=== PATIENT | female | born 1950 | race Caucasian/White ===

== ENCOUNTER 2017-05-27 20:21 | Emergency (ER) | payer OTHER, MEDICARE ==
[~2017-05-27] VITALS: Ht 165.1 cm; Wt 70.3 kg
[~2017-05-27 20:21] MED LIST: DETROL LA; NORCO 5-325 TA1 EACH PO; VENLAFAXINE
[2017-05-27 23:10] VITALS: BP 171/87
== END 2017-05-27 23:10 | disposition home or self-care (01) ==
LOC: M.ERS 20:21
DX: S01.01XA Laceration without foreign body of scalp, initial encounter (principal); F10.99 Alcohol use, unspecified with unspecified alcohol-induced disorder; F32.9 Major depressive disorder, single episode, unspecified; W18.39XA Other fall on same level, initial encounter; Y93.89 Activity, other specified; Y92.89 Other specified places as the place of occurrence of the external cause; Y99.8 Other external cause status

== ENCOUNTER 2018-01-26 08:36 | Observation (INO) | payer OTHER, MEDICARE ==
[~2018-01-26] VITALS: Ht 162.6 cm; Wt 73.6 kg
[2018-01-26 08:39] VITALS: BP 180/84
[2018-01-26] MEDS ORDERED: LIPITOR10 MG PO (08:45)
[2018-01-26] MEDS ORDERED: FOLIC ACID1 MG PO (08:45)
[2018-01-26] MEDS ORDERED: VITAMIN D5000 UNI1 PO (08:46)
[2018-01-26] MEDS ORDERED: ASPIR 8181 M1 PO (08:46)
[2018-01-26 09:08] LABS: ABSOLUTE BASOPHILS 0.1 thou/uL (0.0-0.2); ABSOLUTE EOSINOPHILS 0.2 thou/uL (0.0-0.7); ABSOLUTE LYMPHOCYTES 1.9 thou/uL (0.8-5.3); ABSOLUTE MONOCYTES 0.5 thou/uL (0.0-1.2); ABSOLUTE NEUTROPHILS 3.2 thou/uL (1.6-8.1); BASOPHILS 1.5 %; EOSINOPHILS 2.6 %; HEMATOCRIT 40.1 % (37.0-47.0); HEMOGLOBIN 13.4 gm/dL (12.0-15.0); LYMPHOCYTES 32.4 %; MCH 31.2 pg (26.0-34.0); MCHC 33.5 g/dL (28.0-37.0); MCV 93.2 fL (80.0-100.0); MONOCYTES 9.1 %; MPV 7.4 fl. (7.2-11.1); NUCLEATED RBCS 0 /100WBC; PLATELET COUNT* 304 thou/uL (150-400); POLYS 54.4 %; RDW-CV 13.9 % (10.5-14.5); WBC 5.8 thou/uL (4.0-11.0)
[2018-01-26 09:19] LABS: ANION GAP 7 mmol/L (7-16); BUN 9 mg/dL (7-18); CALCIUM 8.5 mg/dL (8.5-10.1); CHLORIDE 106 mmol/L (98-107); CO2 29 mmol/L (21-32); CREATININE 0.8 mg/dL (0.6-1.3); GLUCOSE 96 mg/dL (70-99); POTASSIUM 4.2 mmol/L (3.5-5.1); SODIUM 142 mmol/L (136-145)
[2018-01-26 09:30] LABS: ALBUMIN 3.9 g/dL (3.4-5.0); ALKALINE PHOSPHATASE 54 U/L (46-116); LIPASE 137 U/L (73-393); MAGNESIUM 2.2 mg/dL (1.8-2.4); NT-PRO BRAIN NAT PEPTIDE 65 pg/mL (<300); SGOT 12 U/L (15-37); SGPT 18 U/L (30-65); TOTAL BILIRUBIN 0.3 mg/dL (<0.1-1.0); TOTAL PROTEIN 7.1 g/dL (6.4-8.2); TROPONIN-I LEVEL <0.06 ng/mL (<0.06)
[2018-01-26 13:45] VITALS: BP 130/85
[2018-01-26 14:06] VITALS: BP 160/96
--- NOTE | 2018-01-26 14:37 | NUR ---
ASSUMED PT CARE AT 0700 PT IS ALERT AND ORIENTED X 4 PT DENIES PAIN OR SOA ON RA, PT IS UP AD MIRZA PT IS NOT A FALL RISK, PT SEEN BY CARDIOLOGY WHO ORDERED STRESS TEST FOR TOMORROW PT IS NPO AT MIDNIGHT CAN HAVE DIET NOW, PT IS SR ON THE MONITOR, WILL CONTINUE TO MONITOR
[2018-01-26 16:05] VITALS: BP 141/65
--- NOTE | 2018-01-26 16:45 | EKG ---
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 01/26/18 1645 1 1 Bryant Diaz MD, FACC /EPI
--- NOTE | 2018-01-26 16:48 | EKG ---
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
--- NOTE | 2018-01-26 17:14 | 2DMMODE ---
[place] [address] 2 D/M-MODE ECHOCARDIOGRAM Name: JUAN COX Room: [address] IN [facility]#: [id number] Admission: 01/26/18 Attend Phys: Azeem Alejandra, Discharge: Date of : 54 Date of Service: 01/26/18 1714 Report #: [id number] THIS REPORT FOR: //name// APPROVED REPORT Study performed: 01/26/2018 15:50:49 EXAM: Comprehensive 2D, Doppler, and color-flow Echocardiogram Patient Location: In-Patient Room #: [facility] Status: routine BSA: 1.77 HR: 68 bpm BP: 160/96 mmHg Rhythm: NSR Other Information Study Quality: Good Indications Chest Pain 2D Dimensions IVSd: 10.61 (7-11mm) LVOT Diam: 19.13 (18-24mm) LVDd: 40.70 mm PWd: 10.27 (7-11mm) Ascending Ao: 31.78 (22-36mm) LVDs: 24.68 (25-40mm) Aortic Root: 28.02 mm Volumes Left Atrial Volume (Systole) LA ESV Index: 28.30 mL/m2 Aortic Valve AoV Peak Misbah.: 1.55 m/s AO Peak Gr.: 9.64 mmHg LVOT Max P.14 mmHg AO Mean Gr.: 5.34 mmHg LVOT Mean P.11 mmHg LVOT Max V: 1.34 m/s AO V2 VTI: 31.33 cm LVOT Mean V: 0.80 m/s [place] (VTI): 2.44 cm2 LVOT V1 VTI: 26.55 cm Mitral Valve E/A Ratio: 1.02 MV Decel. Time: 198.91 ms MV E Max Misbah.: 0.88 m/[place] [address] 2 D/M-MODE ECHOCARDIOGRAM Name: JUAN COX Room: [address] IN .R.#: [id number] Admission: 01/26/18 Attend Phys: Azeem Alejandra, Discharge: Date of : 54 Date of Service: 01/26/18 1714 Report #: [id number] MV PHT: 57.68 ms MVA (PHT): 3.81 cm2 TDI E/Lateral E': 8.00 E/Medial E': 8.00 Medial E' Misbah.: 0.11 m/s Lateral E' Misbah.: 0.11 m/s Pulmonary Valve PV Peak Misbah.: 0.99 m/s PV Peak Gr.: 3.92 mmHg Tricuspid Valve RAP Estimate: 5.00 mmHg TR Peak Gr.: 17.47 mmHg RVSP: 22.47 mmHg PA Pressure: 22.47 mmHg Left Ventricle The left ventricle is normal size. There is normal LV segmental wall motion. There is normal left ventricular wall thickness. Left ventricular systolic function is normal. The left ventricular ejection fraction is within the normal range. LVEF is 60-65%. Grade I - abnormal relaxation pattern. Right Ventricle The right ventricle is normal size. The right ventricular systolic function is normal. Atria The left atrium size is normal. The right atrium size is normal. Aortic Valve The aortic valve is normal in structure. No aortic regurgitation is present. There is no aortic valvular stenosis. Mitral Valve The mitral valve is normal in structure. Mild mitral regurgitation. No evidence of mitral valve stenosis. Tricuspid Valve The tricuspid valve is normal in structure. Trace tricuspid regurgitation. Mild pulmonary hypertension. Pulmonic Valve The pulmonary valve is normal in structure. There is no pulmon[place] [address] 2 D/M-MODE ECHOCARDIOGRAM Name: JUAN COX Room: [address] IN [facility]#: [id number] Admission: 01/26/18 Attend Phys: Azeem Alejandra, Discharge: Date of : 54 Date of Service: 01/26/18 1714 Report #: [id number] Great Vessels The aortic root is normal in size. IVC is normal in size and collapses >50% with inspiration. Pericardium There is no pericardial effusion. <Conclusion> LVEF is 60-65%. There is normal LV segmental wall motion. Grade I - abnormal relaxation pattern. No aortic regurgitation is present. There is no aortic valvular stenosis. Mild mitral regurgitation. Trace tricuspid regurgitation. Mild pulmonary hypertension. <ELECTRONICALLY SIGNED> By: Thor Muniz MD, FACC 01/26/181713 13 13 Thor Muniz MD, FACC /INF
[2018-01-26 19:00] VITALS: BP 158/77
[2018-01-26 20:00] VITALS: BP 139/78
[2018-01-27] VITALS: BP 158/77
[2018-01-27 04:00] VITALS: BP 132/79
--- NOTE | 2018-01-27 05:11 | NUR ---
ASSUMED CARE OF PT AFTER REPORT AT 1930. PT A&OX4. VSS. PHYSICAL ASSESSMENT COMPLETED AND CHARTED. PT ON RA WITH 96% O2 SAT. PT TRACING SR ON TELE. PT UP ADLIB TO TOILET. PT C/O OF HEADACHE WITH PAIN SCALE OF 2/10- DENIES ANY PAIN MEDS. INSTRUCTED ON NPO POST MIDNIGHT FOR STRESS TEST. COMMUNICATES UNDERSTANDING. HOURLY ROUNDING OBSERVED. CALL LIGHT WITHIN REACH.
[2018-01-27 07:45] VITALS: BP 126/69
--- NOTE | 2018-01-27 08:00 | NUR ---
ASSUMED PT. CARE AND RECEIVED REPORT AT 0730. PT A/OX4, VSS, MONITOR ON TRACING SR. PT. DENIES CURRENT PAIN/SOB/NAUSEA. ON RA @ 94%. FULL ASSESSMENT COMPLETED, REFER TO CHARTING. PT NPO FOR STRESS TEST TODAY, STATES UNDERSTANDING. WOULD LIKE TO DC IF TESTING NEGATIVE. INQUIRING ABOUT BLOOD TEST THE DOCTOR RAN YESTERDAY DUE TO SHANIKA'S DX. CALL LIGHT IN REACH, WILL CONTINUE WITH PLAN OF CARE.
--- NOTE | 2018-01-27 15:30 | NUR ---
PT.WAITING FOR RESULTS OF STRESS TEST. SHE HOPES TO GO HOME AFTER THAT. SHE LIVES WITH HER . IS INDEPENDENT. DENIES ANY DISCHARGE NEEDS.
[2018-01-27 15:40] VITALS: BP 123/78
[2018-01-27 16:13] VITALS: BP 123/78
--- NOTE | 2018-01-27 16:33 | CARDNUC ---
[place] [address] CARDIAC NUCLEAR IMAGING REPORT Name: JUAN COX Room: [address] IN [facility]#: [id number] Admission: 01/26/18 Attend Phys: Azeem Alejandra, Discharge: Date of : 54 Date of Service: 01/27/18 1633 Report #: [id number] THIS REPORT FOR: //name// APPROVED REPORT Imaging Protocol: Rest Tc-99m/Stress Tc-99m 1 day Study performed: 01/26/2018 14:24:00 Indication: Chest pain Patient Location: In-Patient Room #: 214 Stress Tech: Ruthy Telles Stress Nurse: Mindy Faulkner RN Ht: 5 ft 4 in Wt: 158 lbs BSA: 1.77 m2 BMI: 27.11 Medical History Medical History: hasimotos thyroiditis, hyperlipidemia Medications: ASPIRIN Allergies: nkda Cardiac Risk Factors: AGE, HYPERLIPIDEMIA,FAMILY HX Previous Cardiac Procedures: none Exercise History: Physically active Resting Data Rest SPECT myocardial perfusion imaging was performed in supine position 30 minutes following the intravenous injection of 11.1 mCi of Tc-99m Sestamibi. Time of rest injection: 10:05 The images were gated to evaluate regional wall motion and calculate left ventricular ejection fraction. Administration Route: IV Administration Site: Left AC Exercise Stress At peak stress, the patient was injected intravenously with 31.9mCi of Tc-99m Sestamibi. Time of stress injection: 11:20 Administration Route: IV Administration Site: Left AC Heart Rate at time of stress injection: 135 bpm. Patient continued to exercise for 50 minute(s). The images were gated to evaluate regional wall motion and calculate left ventricular [place] [address] CARDIAC NUCLEAR IMAGING REPORT Name: BROOKEJUAN Room: [address] IN [facility].#: [id number] Admission: 01/26/18 Attend Phys: Azeem Alejandra, Discharge: Date of : 54 Date of Service: 01/27/18 1633 Report #: [id number] Prone imaging was performed. Comments there was loss of IV continuity during stress only, with spillage of isotope, area/personnel surveyed per protocol, see records Stress Test Details Stress Test: Exercise stress testing was performed using a Dm protocol. HR Max Heart Rate (APMHR): 154 bpm Resting HR: 69 bpm Target HR (85% APMHR): 130 bpm Max HR Achieved: 135 bpm % of APMHR: 87 Recovery HR: 86 bpm HR response to stress: Normal HR response to stress BP Resting BP: 145/95 mmHg Recovery BP: 142/101 mmHg BP response to stress: Normal blood pressure response to stress. ECG Resting ECG: Sinus Rhythm Stress ECG: Sinus Rhythm, NSSTT changes Recovery ECG: Sinus Rhythm Recovery ST Change: None Clinical Reason for Termination: Fatigue Stress Symptoms: 5 Exercise duration: 5 min 11 sec Exercise capacity: 7.05 METs Overall Exercise Capacity for Age: Major Dysfunction Study Quality Study: Fair Artifact: Mild Diaphragmatic artifact Lung Uptake: Normal Study Data At rest, the left ventricular ejection fraction was 80%.. Post stress, the left ventricular ejection was 83%.. SSS: 10 SRS: 3 [place] [address] CARDIAC NUCLEAR IMAGING REPORT Name: JUAN COX Room: [address] IN [facility]#: [id number] Admission: 01/26/18 Attend Phys: Azeem Alejandra, Discharge: Date of : 54 Date of Service: 01/27/18 1633 Report #: [id number] SDS: 7 TID = 0.90. Perfusion Review of SPECT images reveals a patchy, inhomongenous uptake of tracer in all segments, but no defined reversible defects. Prone images show some improvement. Images were reviewed using [employer]. Wall Motion normal all segments Nuclear Conclusion ECG Findings: negative for ischemia Clinical Findings: negative for ischemia Nuclear Findings: negative for ischemia Exercise Capacity: not assessed Left Ventricular Function: normal Risk Study: low Negative stres test for ischemia or infarct. <ELECTRONICALLY SIGNED> By: Thor Muniz MD, FACC 01/27/18 1633 163 163 Thor Muniz MD, [facility] /INF
--- NOTE | 2018-01-27 17:22 | NUR ---
STRESS TEST NEGATIVE FOR ISCHEMIA. MONITOR REMOVED, PT. HAD NO IV ACCESS AT THIS TIME. PT. GIVEN DC INSTRUCITONS, ALL QUESTIONS ANSWERED AND PT. VERBALIZED UNDERSTANGING. PT. LEFT WITH SPOUSE TO RETURN HOME IN PERSONAL VEHICLE, ALL BELONGINGS ACCOUNTED FOR.
== END 2018-01-27 17:00 | disposition home or self-care (01) ==
LOC: M.ERS 08:36 → M.TBA-ER 10:54 → M.2W 10:54 → M.TBA-ER 11:12 → M.2W 13:54
PROVIDERS: Emergency Medicine Emergency Medical Services; ADMIT Internal Medicine
DX: R07.89 Other chest pain (principal); E06.3 Autoimmune thyroiditis; E78.5 Hyperlipidemia, unspecified; F32.9 Major depressive disorder, single episode, unspecified; Z72.89 Other problems related to lifestyle; Z90.710 Acquired absence of both cervix and uterus; Z79.899 Other long term (current) drug therapy

== ENCOUNTER → 2018-12-01 | Outpatient (CLI) | payer OTHER, MEDICARE ==
[~2018-12-01] MED LIST changes: +ASPIR 8181 M1 PO; +FOLIC ACID1 MG PO; +LIPITOR10 MG PO; +VITAMIN D5000 UNI1 PO
== END ==
LOC: M.CT 11-24 13:00
DX: S22.41XA Multiple fractures of ribs, right side, initial encounter for closed fracture (principal); K21.9 Gastro-esophageal reflux disease without esophagitis; G47.33 Obstructive sleep apnea (adult) (pediatric); Z79.82 Long term (current) use of aspirin; Z79.899 Other long term (current) drug therapy; X58.XXXA Exposure to other specified factors, initial encounter; Y93.89 Activity, other specified; Y92.89 Other specified places as the place of occurrence of the external cause; Y99.8 Other external cause status